=== PATIENT | female | born 1995 | race Caucasian/White ===

== ENCOUNTER 2018-05-29 22:31 | Emergency (ER) | payer OTHER ==
[2018-05-29 22:35] VITALS: BP 132/99
--- NOTE | 2018-05-29 22:44 | EDPHY ---
H & P Stated Complaint: Urinary burning, frequency, Time Seen by Provider: 05/29/18 22:44 HPI/ROS: HPI CHIEF COMPLAINT: "I think I have a urinary tract infection" HISTORY OF PRESENT ILLNESS: 23-year-old female presents room stating that she has for the past 3 hr had urinary frequency and dysuria. Bladder pressure. She denies any abdominal pain, denies back pain, denies fever, denies vomiting. She states this feels like last time she had a urinary tract infection. Denies any other complaints. Patient denies being . Past Medical History: Denies significant medical history Past Surgical History: Denies Social History: Denies drugs alcohol tobacco. Family History: Noncontributory ROS REVIEW OF SYSTEMS: 10 Systems were reviewed and negative with the exception of the elements mentioned in the history of present illness. Exam Constitutional appears well nontoxic no acute distress triage nursing summary reviewed, vital signs reviewed, awake/alert. Eyes normal conjunctivae and sclera, EOMI, PERRLA. HENT normal inspection, atraumatic, moist mucus membranes, no epistaxis, neck supple/ no meningismus, no raccoon eyes. Respiratory clear to auscultation bilaterally, normal breath sounds, no respiratory distress, no wheezing. Cardiovascular rate normal, regular rhythm, no murmur, no edema, distal pulses normal. Gastrointestinal soft, non-tender, no rebound, no guarding, normal bowel sounds, no distension, no pulsatile mass. Genitourinary no CVA tenderness. Musculoskeletal no midline vertebral tenderness, full range of motion, no calf swelling, no tenderness of extremities, no meningismus, good pulses, neurovascularly intact. Skin pink, warm, & dry, no rash, skin atraumatic. Neurologic awake, alert and oriented x 3, AAOx3, moves all 4 extremities equally, motor intact, sensory intact, CN II-XII intact, normal cerebellar, normal vision, normal speech. Psychiatric normal mood/affect. Heme/Lymph/Immune no lymphadenopathy. Differential Diagnosis: Includes but is not limited to in a particular UTI, cystitis, pyelonephritis Medical Decision Making: Plan for this patient check UA, urine test and re-evaluate Re-evaluation: Urinalysis indicates urinary tract infection. Urine culture be sent. Keflex started emergency room Keflex take-home pack. Pyridium. Return precautions discussed with the patient she is comfortable this plan. Source: Patient - Personal History LMP (Females 10-55): 1-7 Days Ago Current Tetanus Diphtheria and Acellular Pertussis (TDAP): Yes - Medical/Surgical History Hx Asthma: No Hx Chronic Respiratory Disease: No Hx Diabetes: No Hx Cardiac Disease: No Hx Renal Disease: No Hx Cirrhosis: No Hx Alcoholism: No Hx HIV/AIDS: No Hx Splenectomy or Spleen Trauma: No Other PMH: Denies - Social History Smoking Status: Never smoked Constitutional: Initial Vital Signs Temperature (C) 36.9 C 05/29/18 22:32 Heart Rate 78 05/29/18 22:32 Respiratory Rate 17 05/29/18 22:32 Blood Pressure 132/99 H 05/29/18 22:32 O2 Sat (%) 99 05/29/18 22:32 O2 Delivery Mode Room Air Allergies/Adverse Reactions: No Known Allergies Allergy (Unverified 05/29/18 22:32) Home Medications: Medication Instructions Recorded Cephalexin [Keflex] 500 mg PO Q6H #28 cap 05/29/18 Phenazopyridine HCl [Pyridium] 200 mg PO TID #15 tab 05/29/18 Medical Decision Making - Data Points Laboratory Results: 05/29/18 22:42 Urine Color COLORLESS Urine Appearance CLEAR Urine pH 7.0 (5.0-7.5) Ur Specific [place] < 1.001 L (1.002-1.030) Urine Protein NEGATIVE (NEGATIVE) Urine Ketones NEGATIVE (NEGATIVE) Urine Blood 2+ H (NEGATIVE) Urine Nitrate NEGATIVE (NEGATIVE) Urine Bilirubin NEGATIVE (NEGATIVE) Urine Urobilinogen NEGATIVE EU EU (0.2-1.0) Ur Leukocyte Esterase 1+ H (NEGATIVE) Urine RBC Pending Urine WBC Pending Ur Epithelial Cells Pending Urine Glucose NEGATIVE (NEGATIVE) Departure - Departure Disposition: Home, Routine, Self-Care Clinical Impression: Urinary tract infection Condition: Good Instructions: Urinary Tract Infection in Women (ED) Additional Instructions: 1. Drink lots of fluids stay well-hydrated. 2. Return emergency room if worsening symptoms Referrals: NONE *PRIMARY CARE P,. [Primary Care Provider] - As per Instructions Prescriptions: Cephalexin [Keflex] 500 mg PO Q6H #28 cap Phenazopyridine HCl [Pyridium] 200 mg PO TID #15 tab
[2018-05-29] MEDS ORDERED: CEPHALEXIN 500 MG CAP PO ONE (22:58)
[2018-05-29] MEDS ORDERED: PHENAZOPYRIDINE HCL 200 MG TAB PO ONE (22:58)
== END 2018-05-29 23:16 | disposition home or self-care (01) ==
DX: N39.0 Urinary tract infection, site not specified (principal)